=== PATIENT | male | born 1995 | race Caucasian/White ===

== ENCOUNTER 2018-01-30 11:12 | Emergency (ER) | payer BC, SELFPAY ==
[2018-01-30 11:15] VITALS: BP 115/73; PULSE 74; RESP 20; TEMP 36.7; O2SAT 98
--- NOTE | 2018-01-30 11:47 | ED.GENADUL_ITS ---
Disposition Clinical Impression: Migraine headache, Nausea & vomiting Disposition: HOME Condition: Stable Instructions: Acute Nausea and Vomiting (ED), Migraine Headache (ED) Additional Instructions: Return immediately to the emergency department for any new or worsening symptoms. This includes change in your headache type or pattern, fever, inability to tolerate p.o. intake or take your typical migraine medication. Otherwise resume your Excedrin Migraine medication and follow-up with your primary care provider as needed in the next couple weeks if you not seeing significant signs of improvement. Prescriptions: Ondansetron [Ondansetron Odt] 4 mg PO Q6H PRN #12 tab.rapdis PRN Reason: Nausea / Vomiting Referrals: Danae Kumar, VERNA [Primary Care Provider] - 2 weeks (Follow-up with her primary care provider as needed for reassessment) Medical Decision Making - Medical Decision Making Patient presenting to the emergency department with chief complaint of migraine headache causing nausea and vomiting. Patient states that headache is normal for his typical migraine pattern and denies any changes in headache status or type. Patient states due to extreme nausea he did attempt to call his primary care to just given antiemetics he could take his Excedrin Migraine but they were unable to/unwilling to do this and recommended he come to the emergency department. Physical exam is benign and shows no neurological deficits no other acute findings. Given patient's typical migraine pattern with no change noted I feel that patient only needs symptomatic treatment at this time and that no labs or imaging is required. Patient given 1 L of fluids, ketorolac, Reglan, and Decadron to prevent rebound headache. staff midwife/apprenticeship director attempted to start IV for administration of medication fluids and patient declined this treatment and is now just requesting for ODT Zofran which I feel may be beneficial. Patient given 4 mg ODT Zofran and observe. Once patient stated headache was improving he was given 600 mg of ibuprofen and p.o. challenge with water and crackers. Patient reassessed and states that he had improvement of symptoms after ibuprofen and was tolerating p.o. intake appropriately. Patient was given prescription for further ODT Zofran and encouraged to take his normal Excedrin Migraine headache medication as needed for discomfort and return for any new or worsening symptoms otherwise to follow-up with his primary care provider as needed for reassessment. After discussion of diagnosis and plan of care with patient patient agreed and stated no further needs, questions, or concerns at this time. History of Present Illness - General Chief complaint: Nausea/Vomit/Diar Stated complaint: UNKNOWN Time Seen by Provider: 01/30/18 11:42 Source: patient, RN notes reviewed Mode of arrival: ambulatory Limitations: no limitations - History of Present Illness Initial comments: Patient reports this morning he woke up and began having a headache and nausea and vomiting with it. Patient states long ongoing history of migraine headaches with referrals to neurology, gastroenterology, multiple medication such as propranolol and sumatriptan, MRI CT imaging with no specific findings for his migraine headaches. Patient states that this is very typical of his migraine headache and he had a headache 2 days ago which he was able to abort with Excedrin Migraine headache medication but has not returned. He states history of having such severe vomiting that he cannot keep any fluids down and this morning he was unable to take his medication due to severe nausea. Patient states phonophobia and photophobia along with his headache which is common for him. Onset/Timin -: hour(s) Location: head Severity scale (1-10): 7 Quality: aching Consistency: constant Improves with: none Worsens with: none Treatments Prior to Arrival: none - Related Data Ondansetron [Ondansetron Odt] 4 mg PO Q6H PRN #12 tab.rapdis 01/30/18 Allergies Allergy/AdvReac Type Severity Reaction Status Date / Time peanut Allergy Unknown Unverified 01/30/18 11:19 Review of Systems Constitutional: no symptoms reported Eyes: as per HPI (Photophobia). denies: vision change ENT: denies: ear pain, congestion Respiratory: no symptoms reported Cardiovascular: denies: chest pain, palpitations, syncope Gastrointestinal: nausea, vomiting. denies: abdominal pain, diarrhea, constipation Neurological: headache. denies: weakness, numbness, paresthesias, confusion, abnormal gait Past Medical History - Past Medical History Migraines Surgical history: no surgical history - Social History Smoking status: never smoker Alcohol use: none Drug use: marijuana General Exam - General Limitations: no limitations General appearance: alert, in no apparent distress - Head Head exam: Present: atraumatic, normocephalic, normal inspection - Eye Eye exam: Present: normal apperance, PERRL, EOMI. Absent: scleral icterus, conjunctival injection, nystagmus Pupils: Present: normal accommodation - ENT ENT exam: Present: normal exam, normal orophraynx, mucous membranes moist, TM's normal bilaterally, normal external ear exam - Neck Neck exam: Present: normal inspection, full ROM. Absent: tenderness, meningismus - Respiratory Respiratory exam: Present: normal lung sounds bilaterally. Absent: respiratory distress, wheezes, rales, rhonchi, stridor, decreased breath sounds - Cardiovascular Cardiovascular Exam: Present: regular rate, normal rhythm, normal heart sounds. Absent: tachycardia, systolic murmur, diastolic murmur, rubs, clicks - Neurological Exam Neurological exam: Present: alert, oriented X3, CN II-XII intact, normal gait. Absent: altered, motor sensory deficit - Expanded Neurological Exam No standard instances Neurological exam: Present: protecting the airway. Absent: ataxia Patient oriented to: Present: person, place, time Speech: Present: fluid speech Cranial nerves: EOM's Intact: Normal, Gag Reflex: Normal, Tongue Deviation: Normal, Nystagmus: Normal, Facial Sensation: Normal, Facial Palsy with Forehead Movement: Normal, Facial Palsy without Forehead Movement: Normal Cerebellar function: Finger to Nose: Normal, Heel to Jensen: Normal Motor strength exam: RUE: (5), LUE: (5), RLE: (5), LLE: (5) Best Eye Response (Shlomo): (4) open spontaneously Best Motor Response (Shlomo): (6) obeys commands Best Verbal Response ([place]): (5) oriented - Skin Skin exam: Present: warm, dry, normal color Course Vital Signs - 24 hr 01/30/18 11:15 Temperature 36.7 C Pulse 74 Respiratory 20 Rate Blood Pressure 115/73 Pulse Oximetry 98
[2018-01-30] MEDS: Ondansetron O.D.T. 4 MG TABEF PO (12:19)
[2018-01-30] MEDS: Ibuprofen 600 MG TAB PO (13:12)
[2018-01-30 13:33] VITALS: BP 115/73; PULSE 74; RESP 20; TEMP 36.7; O2SAT 98
== END 2018-01-30 13:35 | disposition home or self-care (01) ==
PROVIDERS: Emergency Provider Student in an Organized Health Care Education/Training Program
DX: G43.909 Migraine, unspecified, not intractable, without status migrainosus (principal); R11.2 Nausea with vomiting, unspecified
CPT/HCPCS: 99283

== ENCOUNTER 2018-03-14 11:41 | Emergency (ER) | payer BC, SELFPAY ==
[2018-03-14 11:51] VITALS: BP 119/66; PULSE 70; RESP 16; TEMP 36.7; O2SAT 98
--- NOTE | 2018-03-14 12:15 | DI.RAD_ITS ---
SYMPTOM/DIAGNOSIS: ABD PAIN, VOMITING ACUTE ABDOMINAL SERIES: No priors. PA CHEST: The heart is normal in size. The lungs are clear. The mediastinal structures and pleura appear intact. CONCLUSION: Normal chest. FLAT AND UPRIGHT ABDOMEN: No evidence of bowel obstruction, organomegaly is seen. The bones are intact. There is a moderate amount of stool throughout the colon. IMPRESSION: Moderate amount of retained stool. No evidence of an acute abdomen.
[2018-03-14] MEDS: Ondansetron 4 MG/2 ML VIAL IVP (12:30)
[2018-03-14] MEDS: Normal Saline 1,000 ML 1000 ML IV (12:30)
[2018-03-14] MEDS: Ketorolac 15 MG/ML VIAL IVP (12:35)
[2018-03-14 12:50] LABS: ALT 13 U/L (12-78); AST 11 U/L (15-37); Albumin 4.3 g/dL (3.4-5.0); Alkaline Phosphatase 52 U/L (46-116); BUN 8 mg/dL (7-18); Bilirubin, Total 0.4 mg/dL (0.2-1.0); Calcium 8.8 mg/dL (8.5-10.1); Chloride 106 mmol/L (98-107); Glucose 107 mg/dL (70-100); Lipase 76 U/L (73-393); Potassium 4.6 mmol/L (3.5-5.1); Sodium 141 mmol/L (136-145); Total Protein 7.6 g/dL (6.4-8.2)
[2018-03-14 13:13] LABS: Bilirubin Negative (Negative); Blood Negative (Negative); Clarity Clear; Glucose Negative (Negative); Ketones Negative (Negative); Leukocyte Esterase Negative (Negative); Nitrite Negative (Negative); Urobilinogen 0.2 EU/dL (Up TO 0.2); pH 8.5 (5-8)
[2018-03-14 13:49] LABS: Abs Immature Grans 0.02 k/cumm (0.0-0.09); Absolute Basophil Count 0.01 k/cumm (0.0-0.2); Absolute Eosinophil Count 0.02 k/cumm (0.0-0.7); Absolute Lymphocyte Count 0.82 k/cumm (1.2-3.4); Absolute Monocyte Count 0.22 k/cumm (0.11-0.7); Absolute Neutrophil Count 4.55 k/cumm (1.2-6.7); Basophils % 0.2; Eosinophils % 0.4; HCT 41.5 % (40.0-50.0); HGB 14.9 g/dL (13.5-17.5); Immature Grans % 0.4; Lymphocytes % 14.5; Mean Corp. HGB Concentration 35.9 g/dL (32.0-36.0); Mean Corpuscular Hemoglobin 31.8 pg (27.0-33.0); Mean Corpuscular Volume 88.5 fL (80-95); Mean Platelet Volume 11.5 fL (8.0-11.0); Monocytes % 3.9; Neutrophils % 80.6; Platelet Count 237 x1000/uL (130-400); RBC 4.69 m/cumm (4.50-6.00); RBC Distribution Width 12.1 % (11.8-14.1); White Blood Cell Count 5.64 k/cumm (4.4-10.8)
--- NOTE | 2018-03-14 14:06 | W.ED.GENAD ---
Discharge Plan Disposition Patient Disposition: HOME Condition: Improving Discharge Details Chief Complaint: Nausea/Vomit/Diar Clinical Impression: Nausea vomiting and diarrhea, Migraine, abdominal Primary Care Provider: Danae Kumar ED Provider: Nate Malhotra Home Meds and New Rx's Prescriptions: Continue amitriptyline 25 mg tablet 25 mg PO HS Qty: 30 RF: 1 ondansetron 4 mg tablet,disintegrating 4 mg PO Q6H PRN (Reason: Nausea / Vomiting) Qty: 12 RF: 0 Discharge Instructions Instructions: Migraine Headache (ED), Acute Nausea and Vomiting (ED), Abdominal Pain (ED) Additional Instructions: Feel free to return to the emergency department for any new or significant worsening of symptoms otherwise follow-up with your primary care provider in the next week for reassessment. Referrals: Danae Kumar, WASH BARREL LEADER [Primary Care Provider] - 1 week Discharge Data Discharge Date/Time-TO BE ENTERED AT DEPARTURE: 03/14/18 14:27 Medical Decision Making Patient presenting to the emergency department for chief complaint of headache and vomiting. Patient states this morning during emesis he noted some bloody streaks and was concerned. Patient states that he also woke up with a headache. He does state history of migraine headaches but this is not as severe or any change in migraine pattern. Patient does state that he has been having more frequency of vomiting and abdominal discomfort for the last 6 months. Patient does state diarrhea x1 yesterday and otherwise normal bowel movements and no urinary symptoms. Physical exam shows a soft nontender abdomen with no abnormalities noted, no CVA tenderness, normal neurological cardiac and respiratory examination. Given patient having vomiting with some blood-tinged I do feel that labs, IV access, and medications is warranted. It is difficult to determine if this is due to patient's headache or if headache is caused from abdominal discomfort. Patient does state that he has been attempting daily marijuana to treat his symptoms so there is concern also for cyclical vomiting syndrome. Patient otherwise appears well and so I feel that patient may have had small vascular ruptures during vomiting that caused the blood tinged streaks to appear in his emesis. Plan to still perform plain film radiological imaging of the chest and abdomen. Pending results patient given IV fluids, ketorolac, and Zofran After review of labs which are unremarkable nondiagnostic, and imaging which shows moderate stool but no other significant findings noted. Patient was reassessed and stated improvement of his symptoms. I do feel the patient needs close follow-up with primary care provider given chronicity of complaint but I feel that patient is able to be safely discharged given improvement of symptoms and no significant abnormalities noted laboratory or radiological. After discussion of diagnosis and plan of care patient is no further needs, questions, or concerns and states clear understanding to return to the emergency department for any worsening symptoms. Patient was prescribed Zofran ODT to use for any nausea or return of mild symptoms. HPI General Mode of arrival: ambulatory. Date/Time Provider Initiated Documentation: 03/14/18 12:05. Limitations to Documentation: no limitations. Information obtained by: patient. History of Present Illness 22 year old M presents to the emergency department with the chief complaint of Abdominal pain, vomiting, described as moderate, with intensity rated at 7. Quality is described as burning and aching, and is localized to the abdomen. Patient started experiencing this month(s) (6months) and it has been intermittent. No relieving factors improve symptom(s), No exacerbating factors reported . Patient did receive the following treatments prior to arrival, none Related Data Home Medications Medication Instructions Recorded Confirmed amitriptyline 25 mg tablet 25 mg PO HS #30 tab 02/12/18 03/14/18 ondansetron 4 mg PO Q6H PRN #12 tab 03/14/18 Previous Rx's Medication Instructions Recorded amitriptyline 25 mg tablet 25 mg PO HS #30 tab 02/12/18 ondansetron 4 mg PO Q6H PRN #12 tab 03/14/18 Allergies Allergy/AdvReac Type Severity Reaction Status Date / Time peanut Allergy Unknown Unverified 03/14/18 11:56 nuts Allergy Uncoded 03/14/18 11:56 General Stated Complaint: Nausea/Vomit/Diar CHIKIS: 3 Review of Systems Constitutional Denies body ache(s), Denies chills, Denies fever(s) and Reports headache(s) ENT Reports headache(s) Cardiovascular Denies chest pain and Denies dyspnea Respiratory Denies dyspnea Gastrointestinal Reports abdominal pain, Reports diarrhea (Small streaks noted this am), Reports nausea, Reports vomiting and Reports hematemesis (slight blood streaked) Integumentary/Breasts Denies rash Neurologic Denies confusion, Reports headache(s) and Denies sensory deficit Psychiatric Denies confusion [facility] Medical History Migraine (Chronic) Social History Smoking/Tobacco Use Status: Never alcohol intake: current alcohol intake frequency: holidays/special occasions only substance use type: marijuana Exam Const General: cooperative, no acute distress and not ill appearing Orientation: alert, awake and oriented x3 HENMT Mouth: moist mucous membranes Resp Effort & Inspection: normal respiratory effort, able to speak in complete sentences and no respiratory distress Cardio Rate: regular rate Rhythm: regular rhythm Heart Sounds: S1 normal and S2 normal GI Inspection: normal to inspection Palpation: soft, not firm, no guarding, no hepatomegaly, no masses and nontender Auscultation: normal bowel sounds Back/Spine/Pelvis Back: no CVA tenderness Skin General skin exam: no rashes or lesions noted Neuro General: alert, awake, oriented x3, moves all extremities and no focal motor deficits Cranial Nerves: CN's II-XI intact bilaterally Cognition: normal cognition Speech: speech normal Gait: normal gait Sensory Exam: no sensory deficits noted Course Vital Signs Temperature 36.7 C 03/14/18 11:51 Pulse 70 03/14/18 11:51 Respiratory Rate 16 03/14/18 11:51 Blood Pressure 119/66 03/14/18 11:51 Pulse Oximetry 98 03/14/18 11:51 Temperature 36.7 C 03/14/18 11:51 Temperature Source Skin 03/14/18 11:51 Pulse 70 03/14/18 11:51 Respiratory Rate 16 03/14/18 11:51 Respiratory Effort 03/14/18 11:51 Blood Pressure 119/66 03/14/18 11:51 Blood Pressure Position Sitting 03/14/18 11:51 Pulse Oximetry 98 03/14/18 11:51 Oxygen Delivery Method Room Air 03/14/18 11:51 Oxygen Flow Rate 0 03/14/18 11:51 Pain Level 10 03/14/18 12:35 Lab/Test Results Lab/Test Results: Laboratory Tests Range/Units 03/14/18 03/14/18 03/14/18 12:25 12:25 13:05 WBC (4.4-10.8) k/cumm 5.64 RBC (4.50-6.00) m/cumm 4.69 Hgb (13.5-17.5) g/dL 14.9 Hct (40.0-50.0) % 41.5 MCV (80-95) fL 88.5 MCH (27.0-33.0) pg 31.8 MCHC (32.0-36.0) g/dL 35.9 RDW (11.8-14.1) % 12.1 Plt Count (130-400) x1000/uL 237 MPV (8.0-11.0) fL 11.5 H Immature Gran % 0.4 Neutrophils % 80.6 Lymphocytes % 14.5 Monocytes % 3.9 Eosinophils % 0.4 Basophils % 0.2 Absolute Neutrophils (1.2-6.7) k/cumm 4.55 Absolute Lymphocytes (1.2-3.4) k/cumm 0.82 L Absolute Monocytes (0.11-0.7) k/cumm 0.22 Absolute Eosinophils (0.0-0.7) k/cumm 0.02 Absolute Basophils (0.0-0.2) k/cumm 0.01 Sodium (136-145) mmol/L 141 Potassium (3.5-5.1) mmol/L 4.6 Chloride (98-107) mmol/L 106 Carbon Dioxide (21.0-32.0) mmol/L 27.0 Anion Gap (3-11) mmol/L 8.0 BUN (7-18) mg/dL 8 Creatinine (0.70-1.30) mg/dL 0.90 Estimated GFR/1.73 m2 (mL/min/1.73m2) >= 60.00 Glucose (70-100) mg/dL 107 H Calcium (8.5-10.1) mg/dL 8.8 Total Bilirubin (0.2-1.0) mg/dL 0.4 AST (15-37) U/L 11 L ALT (12-78) U/L 13 Alkaline Phosphatase (46-116) U/L 52 Total Protein (6.4-8.2) g/dL 7.6 Albumin (3.4-5.0) g/dL 4.3 Lipase (73-393) U/L 76 Urine Color (Yellow) Yellow Urine Clarity Clear Urine pH (5-8) 8.5 H Ur Specific [place] (1.005-1.025) 1.020 Urine Protein (Negative) mg/dL Negative Urine Ketones (Negative) mg/dL Negative Urine Blood (Negative) Negative Urine Nitrite (Negative) Negative Urine Bilirubin (Negative) Negative Urine Urobilinogen (Up TO 0.2) EU/dL 0.2 Ur Leukocyte Esterase (Negative) Negative Urine Glucose (Negative) mg/dL Negative
[2018-03-14 14:10] VITALS: BP 113/57; PULSE 58; RESP 16; TEMP 36.7; O2SAT 98
--- NOTE | 2018-03-14 14:11 | ED.GENADUL_ITS ---
Discharge Plan Disposition Patient Disposition: HOME Condition: Improving Discharge Details Chief Complaint: Nausea/Vomit/Diar Clinical Impression: Nausea vomiting and diarrhea, Migraine, abdominal Primary Care Provider: Danae Kumar ED Provider: Nate Malhotra Home Meds and New Rx's Prescriptions: Continue amitriptyline 25 mg tablet 25 mg PO HS Qty: 30 RF: 1 ondansetron 4 mg tablet,disintegrating 4 mg PO Q6H PRN (Reason: Nausea / Vomiting) Qty: 12 RF: 0 Discharge Instructions Instructions: Migraine Headache (ED), Acute Nausea and Vomiting (ED), Abdominal Pain (ED) Additional Instructions: Feel free to return to the emergency department for any new or significant worsening of symptoms otherwise follow-up with your primary care provider in the next week for reassessment. Referrals: Danae Kumar, CONTRACT RUNNER [Primary Care Provider] - 1 week Discharge Data Discharge Date/Time-TO BE ENTERED AT DEPARTURE: 03/14/18 14:27 Medical Decision Making Patient presenting to the emergency department for chief complaint of headache and vomiting. Patient states this morning during emesis he noted some bloody streaks and was concerned. Patient states that he also woke up with a headache. He does state history of migraine headaches but this is not as severe or any change in migraine pattern. Patient does state that he has been having more frequency of vomiting and abdominal discomfort for the last 6 months. Patient does state diarrhea x1 yesterday and otherwise normal bowel movements and no urinary symptoms. Physical exam shows a soft nontender abdomen with no abnormalities noted, no CVA tenderness, normal neurological cardiac and respiratory examination. Given patient having vomiting with some blood-tinged I do feel that labs, IV access, and medications is warranted. It is difficult to determine if this is due to patient's headache or if headache is caused from abdominal discomfort. Patient does state that he has been attempting daily marijuana to treat his symptoms so there is concern also for cyclical vomiting syndrome. Patient otherwise appears well and so I feel that patient may have had small vascular ruptures during vomiting that caused the blood tinged streaks to appear in his emesis. Plan to still perform plain film radiological imaging of the chest and abdomen. Pending results patient given IV fluids, ketorolac, and Zofran After review of labs which are unremarkable nondiagnostic, and imaging which shows moderate stool but no other significant findings noted. Patient was reassessed and stated improvement of his symptoms. I do feel the patient needs close follow-up with primary care provider given chronicity of complaint but I feel that patient is able to be safely discharged given improvement of symptoms and no significant abnormalities noted laboratory or radiological. After discussion of diagnosis and plan of care patient is no further needs, questions , or concerns and states clear understanding to return to the emergency department for any worsening symptoms. Patient was prescribed Zofran ODT to use for any nausea or return of mild symptoms. HPI General Mode of arrival: ambulatory . Date/Time Provider Initiated Documentation: 03/14/18 12:05 . Limitations to Documentation: no limitations . Information obtained by: patient . History of Present Illness 22 year old M presents to the emergency department with the chief complaint of Abdominal pain, vomiting, described as moderate, with intensity rated at 7. Quality is described as burning and aching, and is localized to the abdomen. Patient started experiencing this month(s) (6months) and it has been intermittent. No relieving factors improve symptom(s), No exacerbating factors reported . Patient did receive the following treatments prior to arrival, none Related Data Home Medications Medication Instructions Recorded Confirmed amitriptyline 25 mg tablet 25 mg PO HS #30 tab 02/12/18 03/14/18 ondansetron 4 mg PO Q6H PRN #12 tab 03/14/18 Previous Rx's Medication Instructions Recorded amitriptyline 25 mg tablet 25 mg PO HS #30 tab 02/12/18 ondansetron 4 mg PO Q6H PRN #12 tab 03/14/18 Allergies Allergy/AdvReac Type Severity Reaction Status Date / Time peanut Allergy Unknown Unverified 03/14/18 11:56 nuts Allergy Uncoded 03/14/18 11:56 General Stated Complaint: Nausea/Vomit/Diar CHIKIS: 3 Review of Systems Constitutional Denies body ache(s), Denies chills, Denies fever(s) and Reports headache(s) ENT Reports headache(s) Cardiovascular Denies chest pain and Denies dyspnea Respiratory Denies dyspnea Gastrointestinal Reports abdominal pain, Reports diarrhea (Small streaks noted this am), Reports nausea, Reports vomiting and Reports hematemesis (slight blood streaked) Integumentary/Breasts Denies rash Neurologic Denies confusion, Reports headache(s) and Denies sensory deficit Psychiatric Denies confusion [facility] Medical History Migraine (Chronic) Social History Smoking/Tobacco Use Status: Never alcohol intake: current alcohol intake frequency: holidays/special occasions only substance use type: marijuana Exam Const General: cooperative, no acute distress and not ill appearing Orientation: alert, awake and oriented x3 HENMT Mouth: moist mucous membranes Resp Effort & Inspection: normal respiratory effort, able to speak in complete sentences and no respiratory distress Cardio Rate: regular rate Rhythm: regular rhythm Heart Sounds: S1 normal and S2 normal GI Inspection: normal to inspection Palpation: soft, not firm, no guarding, no hepatomegaly, no masses and nontender Auscultation: normal bowel sounds Back/Spine/Pelvis Back: no CVA tenderness Skin General skin exam: no rashes or lesions noted Neuro General: alert, awake, oriented x3, moves all extremities and no focal motor deficits Cranial Nerves: CN's II-XI intact bilaterally Cognition: normal cognition Speech: speech normal Gait: normal gait Sensory Exam: no sensory deficits noted Course Vital Signs Temperature 36.7 C 03/14/18 11:51 Pulse 70 03/14/18 11:51 Respiratory Rate 16 03/14/18 11:51 Blood Pressure 119/66 03/14/18 11:51 Pulse Oximetry 98 03/14/18 11:51 Temperature 36.7 C 03/14/18 11:51 Temperature Source Skin 03/14/18 11:51 Pulse 70 03/14/18 11:51 Respiratory Rate 16 03/14/18 11:51 Respiratory Effort 03/14/18 11:51 Blood Pressure 119/66 03/14/18 11:51 Blood Pressure Position Sitting 03/14/18 11:51 Pulse Oximetry 98 03/14/18 11:51 Oxygen Delivery Method Room Air 03/14/18 11:51 Oxygen Flow Rate 0 03/14/18 11:51 Pain Level 10 03/14/18 12:35 Lab/Test Results Lab/Test Results: Laboratory Tests Range/Units 03/14/18 03/14/18 03/14/18 12:25 12:25 13:05 WBC (4.4-10.8) k/cumm 5.64 RBC (4.50-6.00) m/cumm 4.69 Hgb (13.5-17.5) g/dL 14.9 Hct (40.0-50.0) % 41.5 MCV (80-95) fL 88.5 MCH (27.0-33.0) pg 31.8 MCHC (32.0-36.0) g/dL 35.9 RDW (11.8-14.1) % 12.1 Plt Count (130-400) x1000/uL 237 MPV (8.0-11.0) fL 11.5 H Immature Gran % 0.4 Neutrophils % 80.6 Lymphocytes % 14.5 Monocytes % 3.9 Eosinophils % 0.4 Basophils % 0.2 Absolute Neutrophils (1.2-6.7) k/cumm 4.55 Absolute Lymphocytes (1.2-3.4) k/cumm 0.82 L Absolute Monocytes (0.11-0.7) k/cumm 0.22 Absolute Eosinophils (0.0-0.7) k/cumm 0.02 Absolute Basophils (0.0-0.2) k/cumm 0.01 Sodium (136-145) mmol/L 141 Potassium (3.5-5.1) mmol/L 4.6 Chloride (98-107) mmol/L 106 Carbon Dioxide (21.0-32.0) mmol/L 27.0 Anion Gap (3-11) mmol/L 8.0 BUN (7-18) mg/dL 8 Creatinine (0.70-1.30) mg/dL 0.90 Estimated GFR/1.73 m2 (mL/min/1.73m2) >= 60.00 Glucose (70-100) mg/dL 107 H Calcium (8.5-10.1) mg/dL 8.8 Total Bilirubin (0.2-1.0) mg/dL 0.4 AST (15-37) U/L 11 L ALT (12-78) U/L 13 Alkaline Phosphatase (46-116) U/L 52 Total Protein (6.4-8.2) g/dL 7.6 Albumin (3.4-5.0) g/dL 4.3 Lipase (73-393) U/L 76 Urine Color (Yellow) Yellow Urine Clarity Clear Urine pH (5-8) 8.5 H Ur Specific [place] (1.005-1.025) 1.020 Urine Protein (Negative) mg/dL Negative Urine Ketones (Negative) mg/dL Negative Urine Blood (Negative) Negative Urine Nitrite (Negative) Negative Urine Bilirubin (Negative) Negative Urine Urobilinogen (Up TO 0.2) EU/dL 0.2 Ur Leukocyte Esterase (Negative) Negative Urine Glucose (Negative) mg/dL Negative
--- NOTE | 2018-03-15 10:42 | PDOC.ERCMPRO ---
Care Management Progress Note 03/15-Vicente GILLESPIE requested assistance with a PCP f/u in one week for abdominal pain, n/v, migraine. Danae Kumar is PCP. Referral faxed to [facility] this am.
--- NOTE | 2018-03-15 11:57 | CMPROGNOTE_ITS ---
Care Management Progress Note 03/15-Vicente GILLESPIE requested assistance with a PCP f/u in one week for abdominal pain , n/v, migraine. Danae Kumar is PCP. Referral faxed to [facility] this am.
== END 2018-03-14 14:27 | disposition home or self-care (01) ==
PROVIDERS: Emergency Provider Nurse Practitioner Family
DX: R11.2 Nausea with vomiting, unspecified (principal); R19.7 Diarrhea, unspecified; G43.909 Migraine, unspecified, not intractable, without status migrainosus; R10.13 Epigastric pain
CPT/HCPCS: 36415; 80053; 83690; 96361; 96374; 96375; 99284; 74022; 81003; 85025; J1885; J2405

== ENCOUNTER 2019-01-31 06:56 | Outpatient (CLI) | payer BC, SELFPAY ==
--- NOTE | 2019-01-31 10:02 | DI.RAD_ITS ---
SYMPTOM/DIAGNOSIS: CHRONIC DIARRHEA, NAUSEA, VOMITING, EARLY SATIETY K52.9, R11.2 R68 R 63.4 UPPER GI: Routine examination was performed. Preliminary view of the abdomen shows no evidence of bowl obstruction or organomegaly The visualized lung bases are clear. Upper GI was performed according to protocol. There is a normal swallowing mechanism. No gastroesophageal reflux is seen during the examination. No extrinsic, ulcers or strictures are seen in the esophagus, stomach or proximal duodenum. No evidence of gastric outlet obstruction is seen. IMPRESSION: Normal upper GI examination.
== END 2019-01-31 07:16 ==
PROVIDERS: Visit Provider Internal Medicine Gastroenterology
DX: R19.7 Diarrhea, unspecified (principal); R11.2 Nausea with vomiting, unspecified; R68.81 Early satiety; R63.4 Abnormal weight loss
CPT/HCPCS: 74247; J3490

== ENCOUNTER 2019-04-10 01:58 | Outpatient (CLI) | payer BC, SELFPAY ==
--- NOTE | 2019-04-10 09:15 | DI.NM_ITS ---
EXAM: NM GASTRIC EMPTYING CLINICAL HISTORY: CHRONIC DIARRHEA K52.9, EARLY SATIETY R68.81, ABNORMAL WEIGHT LOSS R63.4 TECHNIQUE: Gastric emptying study was performed utilizing 1.0 millicuries of technetium 99 labeled s ulfur colloid in egg meal. COMPARISON: No exams were available for comparison FINDINGS: Gastric emptying calculations at 1, 2 and 4 hours are 62 percent residual, 6 percent residual, and 1 percent residual respectively. 1 hour finding is in the normal range. 2 hour and 4 hour calculatio ns are consistent with increased gastric emptying, etiology nonspecific.
== END 2019-04-10 02:18 ==
PROVIDERS: PCP Family Medicine; Visit Provider Internal Medicine Gastroenterology
DX: K52.9 Noninfective gastroenteritis and colitis, unspecified (principal); R68.81 Early satiety; R63.4 Abnormal weight loss
CPT/HCPCS: 78265

== ENCOUNTER 2022-09-08 00:08 | Emergency (ER) | payer BC, SELFPAY ==
--- NOTE | 2022-09-08 00:11 | W.ED.GENAD ---
Discharge Plan Disposition Patient Disposition: Home Discharge Details Clinical Impression: Acute epigastric pain Primary Care Provider: Alexandre Olvera ED Provider: Jorje Perez Home Meds and New Rx's Prescriptions: No Action No Known Home Meds Discharge Instructions Instructions: Abdominal Pain (ED) Additional Instructions: Please read all of the information that accompanies these instructions. You were seen in the emergency department for your abdominal pain. Your blood work showed that your kidneys are working well and you have no signs of pancreatitis. Please schedule an appointment with your primary care provider in the next week. Please return to the emergency department if develop worsening pain vomiting that does not stop, fevers, or if you have any other concerns. 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 I considered AAA however the patient lacks risk factors as he does not have a history of hypertension nor hyperlipidemia. He has had no right lower quadrant tenderness nor any fevers to suggest appendicitis. SMA syndrome is certainly a possibility as patient does have a low BMI. Will check a lactate to assess for mesenteric ischemia given Reena-Danlos syndrome. Patient is not an alcoholic however given his epigastric tenderness will check a lipase to assess for to assess for pancreatitis. No specific right upper quadrant tenderness to suggest cholecystitis. No rash to abdomen to suggest zoster. Given patient's emesis it is certainly possible that he could have hypokalemia causing abdominal pain. No chest pain to suggest ACS. No flank pain no lower history of ureterolithiasis to suggest ureterolithiasis. No pain out of proportion to suggest necrotizing soft tissue infection. No testicular pain to suggest torsion. Will reassess following labs and consider imaging if patient's pain does not improve with time, fluids, and IV ketorolac. It is certainly possible that the patient's abdominal pain could be secondary to his abdominal migraines which he has had in the past. We will treat nausea with ondansetron. 12:45 AM CBC notable for leukocytosis but no anemia nor thrombocytopenia. Reassuring lactate. 1:15 AM Reassuring lipase. Mild hypokalemia and mild hyperglycemia. No anion gap to suggest DKA. Reassuring LFTs. I met with the patient again. He had not vomited in the emergency department. He was feeling slightly improved following ketorolac. I discussed the patient that I could not be certain that he did not have appendicitis on the CT scan. I also advised that the risks of obtaining a CT scan terms of long-term exposure to radiation. I also speculated that given his history of Reena-Danlos syndrome he would likely have more CT scans than average. Patient reported that he wanted to go home to rest. I advised him to return if he had any worsening pain develops any fevers or had any other concerns. I also advised that just because he did not pursue a CT scan at this point time did not mean that we could not pursue 1 in the future. Will discharge with a short course of ondansetron and empiric trial of expectant outpatient management. Chronic conditions affecting the care of the patient: Reena-Danlos syndrome History obtained from an outside historian: N/A External record review: Chart review at [facility] [place] indicates patient had extensive work-up by gastroenterology which failed to reveal a cause of his weight loss. He also had endocrine testing which was reassuring and excluded hyperthyroidism and adrenal insufficiency. Medications: Ondansetron and ketorolac Social determinants of health affecting disposition: N/A Management discussed with: N/A Treatment/interventions considered: CT scan Response to therapies provided: Improved following ketorolac HPI General Date/Time Provider Initiated Documentation: 09/08/22 00:09. HPI Narrative: This is a 27-year-old male with a history of Reena-Danlos syndrome, abdominal migraines, and gastroparesis now in the emergency department in the setting of abdominal pain and vomiting. Patient endorses a sharp epigastric and left lower quadrant pain that he describes as stabbing. It feels different than his prior episodes of abdominal pain. It began at 8 PM last night. He says that he has had innumerable episodes of emesis. He has never had any surgeries in the past to his abdomen however he has had a remote colonoscopy and EGD back in 2019 when he was diagnosed with gastroparesis. He has never had ureterolithiasis. He denies testicular pain dysuria fevers chest pain shortness of breath. He takes no routine medications. He denies routine tobacco and alcohol but occasionally uses marijuana. 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 Related Data Home Medications Medication Instructions Recorded Confirmed Unknown [No Known Home Meds] 01/28/22 01/28/22 Allergies Allergy/AdvReac Type Severity Reaction Status Date / Time peanut Allergy Unknown Verified 01/26/21 09:23 nuts Allergy Uncoded 01/26/21 09:23 General CHIKIS: 3 PFSH All Active Problems (Updated 09/08/22 @ 01:25 by Jorje Perez MD) Acute epigastric pain (Acute) Skin exam for malignant neoplasm (Acute) Well adult (Acute) Bilateral hip pain (Acute) RICHARD (obstructive sleep apnea) (Chronic) Reena-Danlos disease (Acute) Abnormal weight loss (Acute) Depression (Chronic) Migraine-cluster headache syndrome (Acute) Weight loss (Acute) Vegetarian diet (Acute 01/05/12) WITH PARENTAL GUIDANCE - FAMILY HAS ALWAYS BEEN VEGETARIAN Nausea vomiting and diarrhea (Acute 12/20/16) Upper GI endoscopy@ [facility] [place] 03/28/18 Normal esophagus, normal stomach except for hyperemia from retching during the procedure. Normal duodenum. No specimens collected. Migraine, abdominal (Acute) NO AURA Malaise (Acute 03/05/12) Loose stools (Acute 12/20/16) r/o inflammatory bowel disease Gastroparesis (Acute 03/05/12) Medical History Abnormal weight loss Migraine Social History (Updated 01/26/21 @ 15:50 by Alicia Whitfield) Smoking/Tobacco Use Status: Never Second Hand Exposure: No Smoking risk assessment performed?: Yes Alcohol Intake: former Drug use: Occasionally Substance use type: marijuana Household members: significant other Housing: apartment Communication Needs: None Do you need help understanding health information?: Never Pets and animals: Yes Pets and animals: cat(s) and farm animals Sexually active: Yes Do you think of yourself as: straight/heterosexual Current gender identity: male What is your relationship status?: living with partner How often do you talk on the phone with friends or family?: twice per week How often do you get together with friends or relatives?: once per week Do you belong to any clubs or organized social groups?: yes Panel score (0-1 are the most socially isolated patients): 3 What type of physical activity do you participate in: running Duration: 60-90 minutes/day Frequency: 5-6 times per week Jada/Quaker: None Special jada needs: No Seatbelt use: always Helmet use: Yes Helmet use: always Drive intox or ride w/intox 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 Head: Normocephalic, atraumatic Ear, nose, mouth, throat: Grossly normal inspection. Normal voice, handling secretions normally. Neck: Trachea midline. Cardiovascular: Well-perfused distal extremities. Regular rate and rhythm. Respiratory: Nonlabored respiration. Clear lungs bilaterally. Gastrointestinal: Nondistended abdomen. Soft minimal epigastric and left lower quadrant tenderness. No rebound. No guarding. No right lower quadrant tenderness. Musculoskeletal: No edema. Moving all 4 extremities spontaneously. Skin: Normal for age and race, grossly normal temperature and turgor. No acute rash. Neurologic: Alert and appropriate, no apparent acute deficits. Psychiatric: Mood and manner are appropriate. Grooming and personal hygiene are appropriate.
[2022-09-08 00:12] VITALS: BP 132/109; PULSE 63; RESP 18; TEMP 36.4; O2SAT 100
[2022-09-08 00:39] LABS: Abs Immature Grans 0.04 10^3/uL (0.0-0.06); Absolute Basophil Count 0.03 10^3/uL (0.0-0.2); Absolute Eosinophil Count 0.02 10^3/uL (0.0-0.7); Absolute Lymphocyte Count 1.23 10^3/uL (1.2-3.4); Absolute Monocyte Count 0.61 10^3/uL (0.1-0.8); Basophils % 0.3; Eosinophils % 0.2; HCT 41.3 % (40.0-50.0); HGB 14.4 g/dL (13.5-17.5); Immature Grans % 0.4; Lymphocytes % 10.9; MCH 31.4 pg (27.0-33.0); MCHC 34.9 % (32.0-36.0); MCV 90 fL (80-95); MPV 10.5 fL (8.0-11.0); Monocytes % 5.4; Neutrophils % 82.8; Platelet Count 227 10^3/uL (130-400); RBC 4.58 10^6/uL (4.36-5.78); RDW-SD 39.3 fL; WBC 11.33 10^3/uL (4.4-10.8)
[2022-09-08 00:40] LABS: Absolute Neutrophil Count 9.38 10^3/uL (1.2-6.7)
[2022-09-08] MEDS: Ondansetron 4 MG/2 ML VIAL IVP (00:42)
[2022-09-08] MEDS: Ketorolac 15 MG/ML VIAL IVP (00:43)
[2022-09-08] MEDS: Normal Saline 500 ML IV (00:43)
[2022-09-08 00:44] LABS: Lactate 1.3 mmol/L (0.6-1.4)
[2022-09-08 01:00] LABS: ALT 26 U/L (16-63); AST 24 U/L (15-37); Albumin 4.5 g/dL (3.4-5.0); Alkaline Phosphatase 53 U/L (46-116); BUN 10 mg/dL (7-18); Bilirubin, Total 0.8 mg/dL (0.2-1.0); CREATININE 0.9 mg/dL (0.70-1.30); Calcium 9.4 mg/dL (8.5-10.1); Chloride 103 mmol/L (98-107); Glucose 115 mg/dL (74-106); Lipase 17 U/L (16-77); Potassium 3.4 mmol/L (3.5-5.1); Sodium 138 mmol/L (136-145); Total Protein 7.4 g/dL (6.4-8.2)
[2022-09-08 01:45] VITALS: BP 128/88; PULSE 60; RESP 14; O2SAT 100
== END 2022-09-08 01:48 | disposition home or self-care (01) ==
PROVIDERS: Emergency Provider Emergency Medicine; PCP Family Medicine
DX: R10.13 Epigastric pain (principal); R10.32 Left lower quadrant pain; Q79.60 Ehlers-Danlos syndrome, unspecified; E87.6 Hypokalemia; R73.9 Hyperglycemia, unspecified
CPT/HCPCS: 80053; 83690; 96361; 96374; 96375; 99284; 83605; 85025; J1885; J2405

== ENCOUNTER → 2023-11-17 14:45 | Outpatient (CLI) | payer BC, SELFPAY ==
--- NOTE | 2023-11-17 14:00 | DI.RAD_ITS ---
Exam(s) XR KNEE RT 3V AP,LAT,ANSHU EXAM: XR KNEE RT 3V AP,LAT,ANSHU CLINICAL HISTORY: knee effusion, M25.461. TECHNIQUE: 2D digital imaging was performed. COMPARISON: No exams were available for comparison FINDINGS: 3 views No evidence of acute fracture but there is a large joint effusion noted. Bone density normal. No os seous lesions. No erosions. No joint space narrowing. IMPRESSION: No acute osseous findings but there is a large joint effusion signifying internal derangement if ther e has been trauma. If there is no history of trauma than other reasons for fusion such as infection should be considered. DATA REPOSITORY: RADIATION DOSE DELIVERED:
== END ==
PROVIDERS: PCP Family Medicine; Visit Provider Physician Assistant
DX: M25.461 Effusion, right knee (principal)
CPT/HCPCS: 73562

== ENCOUNTER 2023-11-17 21:30 | Outpatient (REF) | payer BC, SELFPAY ==
[2023-11-17 21:36] LABS: Abs Immature Grans 0.05 10^3/uL (0.0-0.06); Absolute Basophil Count 0.04 10^3/uL (0.0-0.2); Absolute Eosinophil Count 0.03 10^3/uL (0.0-0.7); Absolute Lymphocyte Count 1.73 10^3/uL (1.2-3.4); Absolute Monocyte Count 0.87 10^3/uL (0.1-0.8); Basophils % 0.5 %; Eosinophils % 0.3 %; HCT 42.6 % (40.0-50.0); HGB 14.6 g/dL (13.5-17.5); Immature Grans % 0.6 %; Lymphocytes % 19.8 %; MCH 31.4 pg (27.0-33.0); MCHC 34.3 % (32.0-36.0); MCV 92 fL (80-95); MPV 11.5 fL (8.0-11.0); Neutrophils % 68.8 %; Platelet Count 249 10^3/uL (130-400); RBC 4.65 10^6/uL (4.36-5.78); RDW 12.5 % (11.8-14.1); RDW-SD 41.8 fL; WBC 8.72 10^3/uL (4.4-10.8)
[2023-11-17 21:46] LABS: Iron 93 ug/dL (65-175); Total Iron Binding Capacity 387 ug/dL (250-450)
[2023-11-17 21:59] LABS: C-Reactive Protein 3.57 mg/dL (<or=0.5); Ferritin 90 ng/mL (26-388); TSH (W/Ref FT4) 0.94 uIU/mL (0.36-3.74)
[2023-11-20 09:20] LABS: Transferrin 307 mg/dL (201-352)
[2023-11-20 13:11] LABS: Lyme Ab w Rflx to Lyme Confirm Positive (Negative)
[2023-11-20 15:29] LABS: Lyme IgG Ab Positive (Negative); Lyme IgM Ab Negative (Negative)
[2023-11-21 16:19] LABS: Anaplasma phagocytophilum Negative (Negative); B. miyamotoi PCR Negative (Negative); Babesia divergens/MO-1 Negative (Negative); Babesia duncani Negative (Negative); Babesia microti Negative (Negative); Ehrlichia chaffeensis Negative (Negative); Ehrlichia ewingii/canis Negative (Negative); Ehrlichia muris eauclairensis Negative (Negative)
== END 2023-11-17 21:31 | disposition home or self-care (01) ==
LOC: LBN 21:30
PROVIDERS: Physician Assistant; PCP Family Medicine; Visit Provider Nurse Practitioner Family
DX: R53.83 Other fatigue (principal)
CPT/HCPCS: 86617; 87798; 82728; 83540; 83550; 84443; 84466; 85025; 86140; 86618

== ENCOUNTER 2023-11-19 08:52 | Emergency (ER) | payer BC, SELFPAY ==
[2023-11-19] VITALS (7 sets, daily range): BP systolic 124–151; BP diastolic 65–90; PULSE 59–83; RESP 16; TEMP 36.2; O2SAT 98–100
--- NOTE | 2023-11-19 08:54 | ED.GENADUL_ITS ---
Discharge Plan Disposition Patient Disposition: Home Discharge Details Clinical Impression: Inflammatory arthritis Primary Care Provider: Alexandre Olvera ED Provider: Jorje Perez Home Meds and New Rx's Prescriptions: New ondansetron 4 mg tablet,disintegrating 4 mg PO BID 5 Days Qty: 10 0RF Continued doxycycline hyclate 100 mg capsule 100 mg PO BID Qty: 42 0RF Discharge Instructions Additional Instructions: You are seen in the emergency department for your knee pain. The fluid was drained off of your knee??you had an arthrocentesis performed. The crystals in your knee showed no signs of pseudogout for which you should take ibuprofen as directed below. Please also continue taking your antibiotic in case there is a component of Lyme disease. Please follow-up with your primary care provider next week. Please return to the emergency department if you develop fevers or worsening pain. Please ice your knee for 20 minutes on 20 minutes off for the remainder of the day. A nausea medicine has been sent to her pharmacy. For your pain please take medications as follows: 1. Take acetaminophen (Tylenol), 1,000 mg (two 500 mg tabs) every 6 hours [2. Take ibuprofen (Advil), 400 mg every 6 hours.] Discharge Data Discharge Date/Time-TO BE ENTERED AT DEPARTURE: 11/19/23 12:10 HPI General Date/Time Provider Initiated Documentation: 11/19/23 08:54 . HPI Narrative: MDM This is an overall very well-appearing afebrile and not tachycardic 28-year-old male with monoarticular arthritis concerning for possibility of Lyme arthritis given endemic ticks history of activity in the belcher and no concerns for septic joint based on no fevers and relatively preserved range of motion for which patient will undergo right knee arthrocentesis. Lyme panel is pending from yesterday's visit. No overlying cellulitis. No significant trauma so doubt fracture and x-rays were reassuring several days ago. No history of hemophilia so my suspicion for hemorrhagic arthritis is low. No history of ankylosing spondylitis making seronegative spondyloarthropathy low on the differential. Based on the patient's age my suspicion is low for slipped capital femoral epiphysis. Bedside ultrasound not consistent with DVT. I sent cell counts with differential and a bacterial culture. Glucose send protein assays are send outs. Will also send crystals. My suspicion is low for gouty arthritis based on the patient's age. Will continue doxycycline based on likelihood of Lyme. Will provide ondansetron for nausea. 11:45 AM Right knee arthrocentesis fluid showing yellow cloudy color with 32,493 WBCs with 88% leukocytes most consistent with inflammatory but not septic arthritis. Patient I discussed return indications including any fevers any inability to tolerate p.o. or any worsening pain. He reported his range of motion was markedly improved. He was now able to straight leg raise. I advised primary care follow-up and I asked health deputy [place] marshal Christine that the patient seen next week by his PCP.. HPI This is a previously healthy 28-year-old male brought to the emergency department via private vehicle with his father the setting of right knee pain. 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 Subsequently he noticed some swelling in his right knee. He was seen yesterday at urgent care and had Lyme panel sent and an x-ray which showed a marked effusion. His pain has worsened and so he came to the emergency department. He has been placed on doxycycline. He has not had any fevers. Never had a PE nor DVT. No prior history of similar effusions. He received all his immunizations during childhood. No surgeries to the knees in the past. He rarely smokes marijuana denies routine ethanol and illicits. No trauma to knee. Exam General: Well-appearing in no acute distress speaking in complete sentences. Head: Normocephalic, atraumatic. Eye: Extraocular eye movements intact. No conjunctival injection. No scleral icterus. Ear, nose, mouth, throat: Grossly normal inspection. Normal voice, handling secretions normally. Neck: Trachea midline. Cardiovascular: Well-perfused distal extremities. Respiratory: Nonlabored respiration. Gastrointestinal: Nondistended abdomen. Musculoskeletal: Marked right knee effusion. Mild right knee warmth. Right foot warm well-perfused with 2+ PT and DP pulses. No palpable cords in right calf. Patient is able to actively flex and extend his knee from its approximately 15 degree flexed position. He can extend it to approximately 5 degrees. He has difficulty straight leg raising secondarily to pain. He can flex his knee to approximately 30 degrees. No calf tenderness. Skin: Normal for age and race, grossly normal temperature and turgor. No acute rash. Neurologic: Alert and appropriate, no apparent acute deficits. Psychiatric: Mood and manner are appropriate. Grooming and personal hygiene are appropriate. Related Data Home Medications Medication Instructions Recorded Confirmed doxycycline hyclate 100 mg capsule 100 mg PO BID #42 caps 11/17/23 11/19/23 ondansetron 4 mg disintegrating 4 mg PO BID 5 days #10 tabs 11/19/23 tablet Previous Rx's Medication Instructions Recorded doxycycline hyclate 100 mg capsule 100 mg PO BID #42 caps 11/17/23 ondansetron 4 mg disintegrating 4 mg PO BID 5 days #10 tabs 11/19/23 tablet Allergies Allergy/AdvReac Type Severity Reaction Status Date / Time peanut Allergy Unknown rash Verified 11/19/23 09:01 nuts Allergy rash Uncoded 11/19/23 09:01 General CHIKIS: 3 Procedures Joint Aspiration/Injection Joint Asp./Inject. 1: Time Out Performed: Yes Side of body: right Joint Aspirated: knee Ultrasound Guidance: No Skin Prep: Chlorhexidene Local Anesthetic: Lidocaine 2% and with Epi Amount of anesthesia used (mL): 8 Needle Size Used: 20G Fluid Obtained: turbid Total fluid obtained (mL): 72 Patient Tolerated Procedure: well and no complications Complications: none Medical Decision Making Quality:SDOH Health Related Social Needs: No Data to Display PFSH All Active Problems (Updated 11/19/23 @ 11:51 by Jorje Perez MD) Inflammatory arthritis (Acute) Fatigue (Acute) RICHARD (obstructive sleep apnea) (Chronic) Reena-Danlos disease (Acute) Vegetarian diet (Acute 01/05/12) WITH PARENTAL GUIDANCE - FAMILY HAS ALWAYS BEEN VEGETARIAN Migraine, abdominal (Acute) NO AURA Gastroparesis (Acute 03/05/12) Medical History Abnormal weight loss Migraine Social History (Updated 01/26/21 @ 15:50 by Alicia Whitfield) Smoking/Tobacco Use Status: Never Second Hand Exposure: No Smoking risk assessment performed?: Yes Alcohol Intake: former Drug use: Occasionally Substance use type: marijuana Household members: significant other Housing: apartment Communication Needs: None Do you need help understanding health information?: Never Pets and animals: Yes Pets and animals: cat(s) and farm animals Sexually active: Yes Do you think of yourself as: straight/heterosexual Current gender identity: male What is your relationship status?: living with partner How often do you talk on the phone with friends or family?: twice per week How often do you get together with friends or relatives?: once per week Do you belong to any clubs or organized social groups?: yes Panel score (0-1 are the most socially isolated patients): 3 What type of physical activity do you participate in: running Duration: 60-90 minutes/day Frequency: 5-6 times per week Jada/Congregational: None Special jada needs: No Seatbelt use: always Helmet use: Yes Helmet use: always Drive intox or ride w/intox experienced truck driver: No Do you feel safe at home: Yes Do you feel safe in your relationship?: Yes POCUS Exam (ED) Limited Vascular Exam DATE OF EXAM: 11/19/23 TIME OF EXAM: 10:35 PROVIDER THAT PERFORMED THE STUDY: Jorje Perez IS THIS A REPEAT EXAM DURING THIS ENCOUNTER: No Vascular Exam: Right lower extremity REASON FOR EXAM: Concern for DVT right lower extremity Exam Complete DIFFERENTIAL DIAGNOSES: Negative left lower extremity [id number] DVT study
[2023-11-19 10:34] LABS: Source: Synovial; pH Body Fluid 7
[2023-11-19 11:32] LABS: Clarity Cloudy; Mononuclear Cells 12 %; Polynuclear Cells 88 %; Source Synovial
--- NOTE | 2023-11-19 11:59 | NUR.NOTE ---
Referral faxed to [facility] for a follow up appointment for knee Effusion sometime next week.
[2023-11-22 11:48] LABS: Glucose, BF 59 mg/dL
[2023-11-22 11:53] LABS: Protein,Total, BF 5.5 g/dL
== END 2023-11-19 12:10 | disposition home or self-care (01) ==
PROVIDERS: Emergency Provider Emergency Medicine; PCP Family Medicine
DX: M25.561 Pain in right knee (principal); M25.461 Effusion, right knee; M17.11 Unilateral primary osteoarthritis, right knee
CPT/HCPCS: 20610; 82945; 85302; 93971; 99284; 81373; 83986; 84157; 87070; 87075; 87205; 89051; 89060; 99283